=== PATIENT | male | born 1965 | race African-American/Black ===

== ENCOUNTER → 2016-12-06 | Outpatient (CLI) | payer OTHER ==
[~2016-12-06] MED LIST: B-COMPLEX-VITA1 EACH PO; FLOMAX0.4 M1 PO; INDERAL20 MG DOB; MULTI-VITAMIN1 EAC1 PO; VITAMIN C500 M2 PO; VITAMIN E100 UNI2 PO
== END | disposition home or self-care (01) ==
LOC: CSSDAY 10:59
DX: G35 Multiple sclerosis (principal); Z79.899 Other long term (current) drug therapy
CPT/HCPCS: 96365; 96413; J2323

== ENCOUNTER → 2017-01-03 | Outpatient (CLI) | payer OTHER | END | disposition home or self-care (01) | LOC: CSSDAY 10:27 | DX: G35 Multiple sclerosis (principal); Z79.899 Other long term (current) drug therapy | CPT/HCPCS: 96413; J2323 ==

== ENCOUNTER → 2017-01-31 | Outpatient (CLI) | payer OTHER | END | disposition home or self-care (01) | LOC: CSSDAY 07:15 | DX: Z51.81 Encounter for therapeutic drug level monitoring (principal); G35 Multiple sclerosis; Z79.899 Other long term (current) drug therapy | CPT/HCPCS: 96413; J2323 ==

== ENCOUNTER → 2017-03-01 | Outpatient (CLI) | payer OTHER | END | disposition home or self-care (01) | LOC: CSSDAY 09:57 | DX: G35 Multiple sclerosis (principal) | CPT/HCPCS: 96413; J2323 ==